=== PATIENT | male | born 1980 | race Two or more races ===

== ENCOUNTER 2022-11-12 17:42 | Emergency (ER) | payer SELFPAY ==
[~2022-11-12] VITALS: Ht 180.3 cm; Wt 84.5 kg
[2022-11-12 18:36] VITALS: BP 137/89
[2022-11-12] MEDS ORDERED: ACET500T58 PO (19:22)
[2022-11-12] MEDS ORDERED: AMOX875T4 PO (19:22)
[2022-11-12] MEDS ORDERED: cefTRIAXone SOD 1,000 MG VL IM ONE (19:45)
== END 2022-11-12 20:31 | disposition home or self-care (01) ==
LOC: ER 17:42
DX: S91.052A Open bite, left ankle, initial encounter (principal); W55.01XA Bitten by cat, initial encounter; Y93.89 Activity, other specified; Y92.89 Other specified places as the place of occurrence of the external cause; Y99.8 Other external cause status
CPT/HCPCS: J0696

== ENCOUNTER 2022-11-20 16:10 | Emergency (ER) | payer SELFPAY ==
[~2022-11-20] VITALS: Ht 180.3 cm; Wt 83.0 kg
[~2022-11-20 16:10] MED LIST: ACET500T58 PO; AMOX875T4 PO
[2022-11-20 16:31] VITALS: BP 136/79
[2022-11-20] MEDS ORDERED: TETANUS-DIPTH-ACEL PERTUSSIS 0.5ML SYR Tdap IM ONE (16:45)
[2022-11-20] MEDS ORDERED: CLIN300C70 PO (16:59)
[2022-11-20] MEDS ORDERED: CEFU500T43 PO (16:59)
[2022-11-20] MEDS ORDERED: NEOMYCIN-BACITRACIN-POLYM UNITDOSE PKG TOP OINT TOP ONE ×2 (17:00→17:30)
== END 2022-11-20 17:21 | disposition home or self-care (01) ==
LOC: ER 16:10
DX: S91.052D Open bite, left ankle, subsequent encounter (principal); L03.116 Cellulitis of left lower limb
CPT/HCPCS: 90471; 90715

== ENCOUNTER 2022-11-29 09:54 | Emergency (ER) | payer SELFPAY ==
[~2022-11-29] VITALS: Ht 180.3 cm; Wt 81.8 kg
[~2022-11-29 09:54] MED LIST changes: +CEFU500T43 PO; +CLIN300C70 PO
[2022-11-29] MEDS ORDERED: SODIUM CHLORIDE 0.9% 1,000 ML IV ONE (11:15)
[2022-11-29 12:11] LABS: Urine Bacteria NONE SEEN /hpf (None Seen); Urine Blood Negative /uL (Negative); Urine Mucus FEW (None Seen); Urine WBC <1 /hpf (0 - 3)
[2022-11-29 12:28] LABS: Basophils # (auto) 0.1 10 ^3/uL (0-0.2); Basophils % (auto) 0.8 % (0.0-2.0); Eosinophils # (auto) 0.2 10 ^3/uL (0-0.8); Eosinophils % (auto) 2.8 % (0.0-7.0); Hematocrit 48.1 % (41.0-53.0); Hemoglobin 16.5 g/dL (13.5-17.5); Lymphocytes # (auto) 1.3 10 ^3/uL (0.4-5.4); Lymphocytes % (auto) 20.5 % (10.0-50.0); Mean Corpuscular Hemoglobin 29.9 pg (28.0-32.0); Mean Corpuscular Hgb Conc. 34.3 g/dL (32.0-36.0); Mean Corpuscular Volume 87.4 fL (80.0-100.0); Monocytes # (auto) 0.6 10 ^3/uL (0-1.3); Monocytes % (auto) 10.1 % (0.0-12.0); Neutrophils % (auto) 65.8 % (37.0-80.0); Nucleated Red Blood Cells % 0.4 %; Red Cell Distribution Width 12.7 % (11.8-14.3); White Blood Cell 6.1 10^3/uL (4.4-10.8)
[2022-11-29 12:39] LABS: Albumin 3.5 g/dL (3.4-5.0); BUN/Creatinine Ratio 15.7 (10.0-20.0); Calcium 8.9 mg/dL (8.5-10.1); Potassium 4.1 mmol/L (3.5-5.1)
[2022-11-29 12:52] LABS: Bilirubin, Total 0.4 mg/dL (0.2-1.0)
[2022-11-29 15:10] VITALS: BP 116/54
== END 2022-11-29 15:13 | disposition home or self-care (01) ==
LOC: ER 09:54
DX: L03.116 Cellulitis of left lower limb (principal); Z88.0 Allergy status to penicillin; Z88.1 Allergy status to other antibiotic agents; Z88.8 Allergy status to other drugs, medicaments and biological substances; Z79.899 Other long term (current) drug therapy; Z88.6 Allergy status to analgesic agent
CPT/HCPCS: 29515; 36415; 73700; 80053; 81001; 85025; 85652; 96360; 99284; J7030